=== PATIENT | male | born 1955 | race Caucasian/White ===

== ENCOUNTER → 2017-07-03 12:48 | Outpatient (CLI) | payer OTHER ==
[2013-03-15 23:38] VITALS: BMI 26.0
[~2017-07-03 12:48] MED LIST: ADDERALL 20 MG20 M1 PO; ASPIRIN 81 MG E81 MG PO; BRILINTA90 MG PO; LIPITOR40 MG PO; ZETIA10 MG PO
== END | disposition home or self-care (01) ==
LOC: D.CT 12:48
DX: R10.13 Epigastric pain (principal); R10.2 Pelvic and perineal pain